=== PATIENT | male | born 1950 | race Caucasian/White ===

== ENCOUNTER 2023-02-23 15:08 | Outpatient (CLI) | payer BC, MEDICARE | END 2023-02-23 15:09 | disposition home or self-care (01) | LOC: SCSRAD 15:08 | PROVIDERS: ATTEND Nurse Practitioner Family | DX: M25.561 Pain in right knee (principal); M25.552 Pain in left hip ==

== ENCOUNTER 2023-03-12 13:23 | Inpatient (IN) | payer BC, MEDICARE ==
[2023-03-12] MEDS ORDERED: diphenhydrAMINE 50 MG/ML VIAL IVP PRN (14:19)
[2023-03-12] MEDS ORDERED: Ondansetron PF 4 MG/2 ML Vial IVP PRN (14:19)
[2023-03-12 18:24] VITALS: BMI 27.3
[2023-03-12] MEDS: Zonisamide 100 MG CAP PO SCH (20:54)
[2023-03-12] MEDS: Carvedilol 3.125 MG TAB PO SCH (20:54)
[2023-03-12] MEDS: traMADol HCl 50 MG TAB PO SCH (20:54)
[2023-03-13] MEDS ORDERED: Atorvastatin Calcium 40 MG TAB PO SCH (09:00)
[2023-03-13] MEDS ORDERED: Ezetimibe 10 MG TAB PO SCH (09:00)
[2023-03-13] MEDS ORDERED: Carvedilol 3.125 MG TAB PO SCH (09:00)
[2023-03-13] MEDS ORDERED: Zonisamide 100 MG CAP PO SCH ×2 (09:00→21:00)
[2023-03-13] MEDS ORDERED: traMADol HCl 50 MG TAB PO SCH (09:00)
[2023-03-13] MEDS: Zonisamide 100 MG CAP PO SCH ×2 (09:16→20:51)
[2023-03-13] MEDS: Carvedilol 3.125 MG TAB PO SCH ×2 (09:16→20:53)
[2023-03-13] MEDS: Atorvastatin Calcium 40 MG TAB PO SCH (09:16)
[2023-03-13] MEDS: Ezetimibe 10 MG TAB PO SCH (09:16)
[2023-03-13] MEDS: Acetaminophen 325 MG TAB PO PRN ×2 (09:17→15:27)
[2023-03-13] MEDS: traMADol HCl 50 MG TAB PO SCH ×2 (09:17→20:52)
[2023-03-13] MEDS ORDERED: fentaNYL 50 mcg/mL 1 mL Vial ONE (10:01)
[2023-03-13] MEDS ORDERED: PHENYLEPHRINE-NS 100 MCG/ML 10 ML SYRINGE ONE (11:05)
[2023-03-13] MEDS ORDERED: fentaNYL PF 100 MCG/2 ML SYRINGE ONE (12:53)
[2023-03-13] MEDS ORDERED: Non-Formulary Medication 1 EACH PO PRN (13:19)
[2023-03-13] MEDS ORDERED: Promethazine HCl 25 MG/ML VIAL IM PRN (13:30)
[2023-03-13] MEDS ORDERED: Ondansetron HCl/PF 4 MG/2 ML Vial IVP PRN (13:30)
[2023-03-13] MEDS ORDERED: CEFAZOLIN 2 GM in Sodium Chloride 0.9% 100 ML IVPB SCH (13:30)
[2023-03-13] MEDS: Acetaminophen/Codeine 30-300mg Tablet PO PRN ×2 (16:45→23:03)
[2023-03-14] MEDS: Acetaminophen/Codeine 30-300mg Tablet PO PRN ×2 (05:38→22:59)
[2023-03-14] MEDS: Carvedilol 3.125 MG TAB PO SCH ×2 (09:31→20:50)
[2023-03-14] MEDS: Ezetimibe 10 MG TAB PO SCH (09:31)
[2023-03-14] MEDS: Atorvastatin Calcium 40 MG TAB PO SCH (09:31)
[2023-03-14] MEDS: Zonisamide 100 MG CAP PO SCH ×2 (09:32→20:52)
[2023-03-14] MEDS: traMADol HCl 50 MG TAB PO SCH ×2 (09:32→20:50)
[2023-03-14] MEDS ORDERED: Thrombin 5000 UNITS/5 ML VIAL ONE (11:30)
[2023-03-14] MEDS ORDERED: fentaNYL PF 100 MCG/2 ML SYRINGE ONE (11:33)
[2023-03-14] MEDS ORDERED: PROPOFOL 20 ML ONE ×2 (11:33→12:53)
[2023-03-14] MEDS ORDERED: Dexamethasone 20 MG/5 ML VIAL ONE ×2 (11:34→11:52)
[2023-03-14] MEDS ORDERED: Rocuronium Bromide 10 MG/ML (10ML VIAL) ONE ×2 (11:34→11:52)
[2023-03-14] MEDS ORDERED: Ondansetron PF 4 MG/2 ML Vial ONE ×2 (11:34→11:52)
[2023-03-14] MEDS ORDERED: CEFAZOLIN 2 GM VIAL ONE (11:40)
[2023-03-14] MEDS ORDERED: Sodium Chloride 0.9% 100 ML ONE (11:40)
[2023-03-14] MEDS ORDERED: Glycopyrrolate 0.2 MG/ML 5 ML SYRINGE ONE ×2 (11:52→12:54)
[2023-03-14] MEDS ORDERED: PHENYLEPHRINE-NS 100 MCG/ML 10 ML SYRINGE ONE ×2 (11:52→12:06)
[2023-03-14] MEDS ORDERED: NEOSTIGMINE 3 MG/3 ML SYR 3 MG/3 ML SYRINGE ONE ×2 (11:52→12:54)
[2023-03-14] MEDS ORDERED: ePHEDrine Sulfate 50 MG/10 ML VIAL ONE ×2 (11:52→13:06)
[2023-03-14] MEDS ORDERED: PROPOFOL 200 MG/20 ML VIAL ONE (11:52)
[2023-03-14] MEDS ORDERED: Ketamine In 0.9 % NaCl 50 MG/5 ML SYRINGE ONE (12:00)
[2023-03-14] MEDS ORDERED: HYDROmorphone 2 MG/ML VIAL SLOW IVP PRN (12:22)
[2023-03-14] MEDS ORDERED: Ondansetron HCl/PF 4 MG/2 ML Vial IVP PRN (12:22)
[2023-03-14] MEDS ORDERED: Promethazine HCl 25 MG/ML VIAL IM PRN (12:22)
[2023-03-14] MEDS ORDERED: Morphine 2 MG/ML VIAL SLOW IVP PRN (13:04)
[2023-03-14] MEDS ORDERED: fentaNYL 50 mcg/mL 1 mL Vial ONE ×2 (13:42→13:58)
[2023-03-14] MEDS: Sodium Chloride 0.9% 1,000 ML IV SCH ×2 (18:06→19:08)
[2023-03-14] MEDS: CEFAZOLIN 2 GM in Sodium Chloride 0.9% 100 ML IVPB SCH (20:50)
[2023-03-15] MEDS: CEFAZOLIN 2 GM in Sodium Chloride 0.9% 100 ML IVPB SCH (04:18)
[2023-03-15] MEDS: Tamsulosin HCl 0.4 MG CAP PO SCH (06:27)
[2023-03-15] MEDS: Acetaminophen/Codeine 30-300mg Tablet PO PRN ×3 (07:11→23:13)
[2023-03-15] MEDS: Zonisamide 100 MG CAP PO SCH ×2 (10:09→21:24)
[2023-03-15] MEDS: Carvedilol 3.125 MG TAB PO SCH ×2 (10:10→21:25)
[2023-03-15] MEDS: traMADol HCl 50 MG TAB PO SCH ×2 (10:10→21:24)
[2023-03-15] MEDS: Atorvastatin Calcium 40 MG TAB PO SCH (10:11)
[2023-03-15] MEDS: Ezetimibe 10 MG TAB PO SCH (10:12)
[2023-03-15] MEDS ORDERED: Lidocaine 1% (PF) 30 ML VIAL SC SCH (11:00)
[2023-03-15] MEDS ORDERED: methylPREDNISolone Acetate 40 mg/ml Vial IM SCH (11:00)
[2023-03-15] MEDS: Sodium Chloride 0.9% 1,000 ML IV SCH (17:50)
[2023-03-16] MEDS: Sodium Chloride 0.9% 1,000 ML IV SCH ×2 (04:52→19:38)
[2023-03-16] MEDS: Tamsulosin HCl 0.4 MG CAP PO SCH (06:19)
[2023-03-16] MEDS: Zonisamide 100 MG CAP PO SCH ×2 (09:01→21:18)
[2023-03-16] MEDS: Carvedilol 3.125 MG TAB PO SCH ×2 (09:02→21:16)
[2023-03-16] MEDS: Atorvastatin Calcium 40 MG TAB PO SCH (09:02)
[2023-03-16] MEDS: Acetaminophen/Codeine 30-300mg Tablet PO PRN ×3 (09:02→23:27)
[2023-03-16] MEDS: Ezetimibe 10 MG TAB PO SCH (09:02)
[2023-03-16] MEDS: traMADol HCl 50 MG TAB PO SCH ×2 (09:07→21:16)
[2023-03-17] MEDS: Acetaminophen/Codeine 30-300mg Tablet PO PRN ×3 (05:22→17:36)
[2023-03-17] MEDS: Tamsulosin HCl 0.4 MG CAP PO SCH (05:23)
[2023-03-17] MEDS: Sodium Chloride 0.9% 1,000 ML IV SCH ×2 (07:35→20:44)
[2023-03-17] MEDS: Carvedilol 3.125 MG TAB PO SCH ×2 (08:02→20:38)
[2023-03-17] MEDS: Ezetimibe 10 MG TAB PO SCH (08:02)
[2023-03-17] MEDS: traMADol HCl 50 MG TAB PO SCH ×2 (08:02→20:38)
[2023-03-17] MEDS: Atorvastatin Calcium 40 MG TAB PO SCH (08:02)
[2023-03-17] MEDS: Zonisamide 100 MG CAP PO SCH ×2 (08:03→20:40)
[2023-03-17] MEDS: Cyclobenzaprine 10 MG TAB PO PRN (15:36)
[2023-03-17] MEDS ORDERED: Polyethylene Glycol 3350 17 GM Packet PO PRN (19:31)
[2023-03-17] MEDS ORDERED: Senokot 8.6 MG TAB PO PRN (19:31)
[2023-03-18] MEDS: Acetaminophen/Codeine 30-300mg Tablet PO PRN ×3 (01:32→23:17)
[2023-03-18] MEDS: Tamsulosin HCl 0.4 MG CAP PO SCH (05:17)
[2023-03-18] MEDS: Cyclobenzaprine 10 MG TAB PO PRN (05:17)
[2023-03-18] MEDS ORDERED: Phenol 177 ML BOT PO PRN (07:10)
[2023-03-18] MEDS: traMADol HCl 50 MG TAB PO SCH ×2 (09:29→20:37)
[2023-03-18] MEDS: Carvedilol 3.125 MG TAB PO SCH ×2 (09:29→20:38)
[2023-03-18] MEDS: Zonisamide 100 MG CAP PO SCH ×2 (09:29→20:37)
[2023-03-18] MEDS: Ezetimibe 10 MG TAB PO SCH (09:29)
[2023-03-18] MEDS: Atorvastatin Calcium 40 MG TAB PO SCH (09:29)
[2023-03-18] MEDS: Sodium Chloride 0.9% 1,000 ML IV SCH (13:56)
[2023-03-19] MEDS: Sodium Chloride 0.9% 1,000 ML IV SCH ×2 (00:36→16:50)
[2023-03-19] MEDS: Cyclobenzaprine 10 MG TAB PO PRN ×2 (04:09→18:03)
[2023-03-19] MEDS: Tamsulosin HCl 0.4 MG CAP PO SCH (05:26)
[2023-03-19] MEDS: Zonisamide 100 MG CAP PO SCH (09:18)
[2023-03-19] MEDS: Carvedilol 3.125 MG TAB PO SCH (09:18)
[2023-03-19] MEDS: traMADol HCl 50 MG TAB PO SCH (09:18)
[2023-03-19] MEDS: Atorvastatin Calcium 40 MG TAB PO SCH (09:18)
[2023-03-19] MEDS: Ezetimibe 10 MG TAB PO SCH (09:18)
[2023-03-19 11:52] VITALS: TEMP 98.4
[2023-03-19] MEDS: Acetaminophen/Codeine 30-300mg Tablet PO PRN (12:26)
[2023-03-19 19:48] VITALS: BP 157/85
== END 2023-03-19 19:45 | DRG 472 ==
LOC: SURG A 15:39
PROVIDERS: ADMIT Neurological Surgery; ATTEND Neurological Surgery
PROC: 0RG10A0 Fusion of Cervical Vertebral Joint with Interbody Fusion Device, Anterior Approach, Anterior Column, Open Approach (ICD-10-PCS; principal; 2023-03-14)
PROC: 0RB30ZZ Excision of Cervical Vertebral Disc, Open Approach (ICD-10-PCS; 2023-03-14)
PROC: 0S9C3ZZ Drainage of Right Knee Joint, Percutaneous Approach (ICD-10-PCS; 2023-03-15)
PROC: 3E0U33Z Introduction of Anti-inflammatory into Joints, Percutaneous Approach (ICD-10-PCS; 2023-03-15)
DX: M48.02 Spinal stenosis, cervical region (principal); M47.12 Other spondylosis with myelopathy, cervical region; M17.11 Unilateral primary osteoarthritis, right knee; E78.5 Hyperlipidemia, unspecified; Z95.1 Presence of aortocoronary bypass graft; Z98.890 Other specified postprocedural states; Z82.49 Family history of ischemic heart disease and other diseases of the circulatory system; Z82.3 Family history of stroke; Z87.891 Personal history of nicotine dependence; Z79.82 Long term (current) use of aspirin; Z79.899 Other long term (current) drug therapy
CPT/HCPCS: 72141; 72146; 72148; C1713; C1889; J1100; J2272; J2405; J2704; J3010; J3490; J7050

== ENCOUNTER 2024-05-30 09:52 | Outpatient (CLI) | payer BC, MEDICARE | END 2024-05-30 09:53 | disposition home or self-care (01) | LOC: CT 09:52 | PROVIDERS: ATTEND Orthopaedic Surgery | DX: M17.11 Unilateral primary osteoarthritis, right knee (principal); I70.90 Unspecified atherosclerosis ==

== ENCOUNTER 2024-06-23 10:11 | Day surgery (SDC) | payer BC, MEDICARE ==
[2024-06-20 13:07] VITALS: BMI 25.8
[2024-06-23] MEDS ORDERED: Lidocaine 1% PF 5 ML VIAL ONE (12:20)
[2024-06-23] MEDS ORDERED: Ondansetron PF 4 MG/2 ML Vial ONE (12:20)
[2024-06-23] MEDS ORDERED: PROPOFOL 200 MG/20 ML VIAL ONE (12:20)
== END 2024-06-23 15:13 | disposition home or self-care (01) ==
LOC: MRI 10:11
PROVIDERS: ATTEND Internal Medicine Gastroenterology
DX: K62.89 Other specified diseases of anus and rectum (principal); R13.19 Other dysphagia; I10 Essential (primary) hypertension; I25.10 Atherosclerotic heart disease of native coronary artery without angina pectoris; E78.00 Pure hypercholesterolemia, unspecified; K21.9 Gastro-esophageal reflux disease without esophagitis; Z95.5 Presence of coronary angioplasty implant and graft; Z95.1 Presence of aortocoronary bypass graft; Z87.891 Personal history of nicotine dependence; Z98.890 Other specified postprocedural states; Z79.82 Long term (current) use of aspirin; Z79.02 Long term (current) use of antithrombotics/antiplatelets; Z79.899 Other long term (current) drug therapy
CPT/HCPCS: 72197; J2405; J2704

== ENCOUNTER 2025-03-05 08:37 | Outpatient (CLI) | payer BC, MEDICARE | END 2025-03-05 08:38 | disposition home or self-care (01) | LOC: RAD 08:37 | PROVIDERS: ATTEND Internal Medicine Critical Care Medicine | DX: R06.00 Dyspnea, unspecified (principal); J84.10 Pulmonary fibrosis, unspecified | CPT/HCPCS: 71046 ==